=== PATIENT | female | born 1995 | race Caucasian/White ===

== ENCOUNTER 2016-08-22 22:28 | Observation (INO) | payer MEDICAID ==
[~2016-08-22] VITALS: Ht 152.4 cm; Wt 96.6 kg
[2016-08-22] MEDS ORDERED: PREN-88 PO (23:26)
[2016-08-22] MEDS ORDERED: FERR-63 PO (23:28)
[2016-08-22] MEDS ORDERED: FOLI-43 PO (23:28)
== END 2016-08-23 00:40 | disposition home or self-care (01) ==
LOC: L&D 22:28
PROVIDERS: ADMIT Obstetrics & Gynecology; ATTEND Obstetrics & Gynecology
DX: O26.893 Other specified pregnancy related conditions, third trimester (principal); R10.9 Unspecified abdominal pain; Z3A.33 33 weeks gestation of pregnancy
CPT/HCPCS: 76805; 76818; 99281; G0378